=== PATIENT | female | born 1980 | race African-American/Black ===

== ENCOUNTER 2018-02-19 10:54 | Emergency (ER) | payer SELFPAY ==
[~2018-02-19] VITALS: Ht 175.3 cm; Wt 77.3 kg
[2018-02-19 11:00] VITALS: BP 174/85; TEMP 99.6
[2018-02-19] MEDS ORDERED: AMOXICILLIN 50500 MG PO (11:15)
[2018-02-19] MEDS ORDERED: NORCO 325 MG-51 TAB PO (11:15)
[2018-02-19 11:25] VITALS: PULSE 86
== END 2018-02-19 11:34 | disposition home or self-care (01) ==
LOC: COL.ER 10:54
DX: K02.9 Dental caries, unspecified (principal)
CPT/HCPCS: J1885

== ENCOUNTER 2018-03-03 09:28 | Emergency (ER) | payer SELFPAY ==
[~2018-03-03] VITALS: Ht 175.3 cm; Wt 77.3 kg
[~2018-03-03 09:28] MED LIST: AMOXICILLIN 50500 MG PO; NORCO 325 MG-51 TAB PO
[2018-03-03 09:30] VITALS: TEMP 99.3
[2018-03-03] MEDS ORDERED: NORCO 325 MG-51 TAB PO (10:53)
[2018-03-03 10:57] VITALS: BP 144/85; PULSE 87
== END 2018-03-03 11:06 | disposition home or self-care (01) ==
LOC: COL.ER 09:28
DX: K02.9 Dental caries, unspecified (principal); Z98.890 Other specified postprocedural states

== ENCOUNTER → 2018-04-11 | Outpatient (CLI) | payer BC | LOC: COL.LAB 12:40 | DX: Z30.42 Encounter for surveillance of injectable contraceptive (principal) ==

== ENCOUNTER 2018-04-23 09:30 | Emergency (ER) | payer BC ==
[~2018-04-23] VITALS: Ht 175.3 cm; Wt 77.3 kg
[2018-04-23 09:35] VITALS: BP 154/94; PULSE 91; TEMP 99.3
== END 2018-04-23 11:00 | disposition left against medical advice (07) ==
LOC: COL.ER 09:30
DX: K08.89 Other specified disorders of teeth and supporting structures (principal)

== ENCOUNTER 2018-05-15 09:24 | Emergency (ER) | payer BC ==
[~2018-05-15] VITALS: Ht 175.3 cm; Wt 77.3 kg
[2018-05-15 09:33] VITALS: BP 141/93; TEMP 99.1
[2018-05-15] MEDS ORDERED: AMOXICILLIN 8751 TAB PO (09:46)
[2018-05-15] MEDS ORDERED: NORCO 325 MG-51 TAB PO (09:52)
[2018-05-15 10:22] VITALS: PULSE 90
== END 2018-05-15 10:23 | disposition home or self-care (01) ==
LOC: COL.ER 09:24
DX: K02.9 Dental caries, unspecified (principal); F17.210 Nicotine dependence, cigarettes, uncomplicated
CPT/HCPCS: J1885

== ENCOUNTER 2018-06-22 12:15 | Emergency (ER) | payer BC ==
[~2018-06-22] VITALS: Ht 175.3 cm; Wt 7.7 kg
[~2018-06-22 12:15] MED LIST changes: +AMOXICILLIN 8751 TAB PO
[2018-06-22 12:27] VITALS: BP 138/86; PULSE 102; TEMP 99.7
[2018-06-22 12:51] LABS: COLLECTION METHOD CLEAN CATCH
[2018-06-22 13:05] LABS: MUCOUS Present /lpf; PH 5 (5-8); SQUAMOUS EPITHELIAL 0-2 /hpf; URINE APPEARANCE Clear; URINE BACTERIA None Seen /hpf; URINE BILIRUBIN Negative (NEGATIVE); URINE BLOOD Negative (NEGATIVE); URINE COLOR Yellow; URINE GLUCOSE Negative (NEGATIVE); URINE KETONE Negative (NEGATIVE); URINE LEUKOCYTE ESTERASE Negative (NEGATIVE); URINE NITRATE Negative (NEGATIVE); URINE PROTEIN(semi-quant) Negative (NEGATIVE); URINE RBC 0-2 /hpf; URINE UROBILINOGEN Negative (NEGATIVE)
[2018-06-22] MEDS ORDERED: NORCO 325 MG-51 TAB PO (14:41)
[2018-06-22] MEDS ORDERED: CEFTIN 250250 MG/TAB PO (14:41)
== END 2018-06-22 14:47 | disposition home or self-care (01) ==
LOC: COL.ER 12:15
PROVIDERS: Emergency Medicine
DX: N39.0 Urinary tract infection, site not specified (principal); K02.9 Dental caries, unspecified; F17.210 Nicotine dependence, cigarettes, uncomplicated; Z98.890 Other specified postprocedural states
CPT/HCPCS: J1885

== ENCOUNTER → 2019-01-14 | Outpatient (CLI) | payer MEDICAID ==
[~2019-01-14] MED LIST changes: +CEFTIN 250250 MG/TAB PO
== END ==
LOC: COL.RAD 11:15
DX: M71.22 Synovial cyst of popliteal space [Baker], left knee (principal)

== ENCOUNTER 2019-05-09 13:16 | Emergency (ER) | payer MEDICAID ==
[~2019-05-09] VITALS: Ht 175.3 cm; Wt 82.3 kg
[2019-05-09 13:21] VITALS: BP 136/81; TEMP 98
[2019-05-09] MEDS ORDERED: SUBOXONE 8 MG-21 TAB SL (13:38)
[2019-05-09] MEDS ORDERED: AMOXICILLIN 8751 TAB PO (15:01)
[2019-05-09 15:20] VITALS: PULSE 80
== END 2019-05-09 15:20 | disposition home or self-care (01) ==
LOC: COL.ER 13:16
DX: K02.9 Dental caries, unspecified (principal); F17.210 Nicotine dependence, cigarettes, uncomplicated
CPT/HCPCS: J1885

== ENCOUNTER 2020-01-07 18:55 | Emergency (ER) | payer MEDICAID ==
[~2020-01-07] VITALS: Ht 175.3 cm; Wt 80.0 kg
[~2020-01-07 18:55] MED LIST changes: +JUBLIA TOP; +SUBOXONE 8 MG-21 TAB SL
[2020-01-07 19:02] VITALS: BP 152/108; TEMP 98.1
[2020-01-07 19:22] LABS: COLLECTION METHOD CLEAN CATCH
[2020-01-07 19:42] LABS: MUCOUS Present /lpf; PH 5 (5-8); SQUAMOUS EPITHELIAL 0-2 /hpf; URINE APPEARANCE Hazy; URINE BACTERIA None Seen /hpf; URINE BILIRUBIN Negative (NEGATIVE); URINE BLOOD Negative (NEGATIVE); URINE COLOR Yellow; URINE GLUCOSE Negative (NEGATIVE); URINE KETONE Trace (NEGATIVE); URINE LEUKOCYTE ESTERASE 1+ (NEGATIVE); URINE NITRATE Negative (NEGATIVE); URINE PROTEIN(semi-quant) 1+ (NEGATIVE)
[2020-01-07] MEDS ORDERED: MACROBID 1100 MG/CAP PO (20:04)
[2020-01-07 20:10] VITALS: PULSE 76
== END 2020-01-07 20:10 | disposition home or self-care (01) ==
LOC: COL.ER 18:55
PROVIDERS: Nurse Practitioner Primary Care
DX: N39.0 Urinary tract infection, site not specified (principal); F17.210 Nicotine dependence, cigarettes, uncomplicated

== ENCOUNTER 2021-01-31 02:01 | Emergency (ER) | payer MEDICAID ==
[~2021-01-31] VITALS: Ht 175.3 cm; Wt 76.8 kg
[~2021-01-31 02:01] MED LIST changes: +MACROBID 1100 MG/CAP PO
[2021-01-31 02:27] VITALS: TEMP 98.5
[2021-01-31 03:34] LABS: BASO % 0.4 % (0.0-2.0); EOS # 0.2 (0.0-0.7); EOS % 4.3 % (0-4.0); GRAN # 1.8 (1.4-6.5); GRAN % 41.2 % (42.2-75.2); HEMOGLOBIN 11.6 g/dl (12.5-16.0); LYMPH # 2.2 (1.2-3.4); LYMPH % 48.1 % (20.0-51.0); MEAN CELL VOLUME 86 fl (80.0-100.0); MEAN CORPUSCULAR HEMOGLOBIN 27 pg (27.0-31.0); MEAN CORPUSCULAR HGB CONC 32 g/dl (33.0-37.0); MEAN PLATELET VOLUME 10.8 fl (7.4-10.4); MONO # 0.3 (0.1-0.6); MONO % 5.8 % (1.7-9.3); PLATELET COUNT 278 K/mm3 (130-400); RED BLOOD COUNT 4.25 M/mm3 (4.10-5.30); REDCELL DISTRIBUTION WIDTH-CV 13.4 % (11.5-14.5)
[2021-01-31 03:35] LABS: HEMATOCRIT 36.5 % (37.0-47.0)
[2021-01-31 03:45] LABS: ALBUMIN 4.1 gm/dL (3.5-5.0); BILIRUBIN,TOTAL 0.6 mg/dL (0.0-1.0); CREATININE, serum 0.67 (0.52-1.25)
[2021-01-31] MEDS ORDERED: PROTONIX20 MG PO (05:04)
[2021-01-31 05:43] VITALS: BP 129/75; PULSE 81
== END 2021-01-31 05:43 | disposition home or self-care (01) ==
LOC: COL.ER 02:01
PROVIDERS: Emergency Medicine Emergency Medical Services
DX: K29.70 Gastritis, unspecified, without bleeding (principal)
CPT/HCPCS: J1885; J7030; Q9967